=== PATIENT | female | born 1965 | race African-American/Black ===

== ENCOUNTER 2018-02-17 08:17 | Outpatient (CLI) | payer BC | END 2018-02-17 08:18 | disposition home or self-care (01) | LOC: BICMAMMO 08:17 | PROVIDERS: ATTEND Family Medicine | DX: Z12.31 Encounter for screening mammogram for malignant neoplasm of breast (principal) | CPT/HCPCS: 77063; 77067 ==

== ENCOUNTER 2020-11-30 09:10 | Outpatient (CLI) | payer BC | END 2020-11-30 09:11 | disposition home or self-care (01) | LOC: BICMAMMO 09:10 | PROVIDERS: ATTEND Family Medicine | DX: Z12.31 Encounter for screening mammogram for malignant neoplasm of breast (principal) | CPT/HCPCS: 77063; 77067 ==

== ENCOUNTER 2022-04-04 11:39 | Outpatient (CLI) | payer BC | END 2022-04-04 11:40 | disposition home or self-care (01) | LOC: BICMAMMO 11:39 | PROVIDERS: ATTEND Family Medicine | DX: Z12.31 Encounter for screening mammogram for malignant neoplasm of breast (principal) | CPT/HCPCS: 77063; 77067 ==